=== PATIENT | male | born 1935 | race Caucasian/White ===

== ENCOUNTER 2018-06-11 11:26 | Outpatient (CLI) | payer MEDICARE | END 2018-06-11 11:27 | disposition hospice, inpatient (51) | LOC: EMS 11:26 | PROVIDERS: ATTEND Surgery | DX: R53.1 Weakness (principal); R56.9 Unspecified convulsions | CPT/HCPCS: A0425; A0428 ==

== ENCOUNTER 2018-08-20 08:00 | Outpatient (CLI) | payer MEDICARE | END 2018-08-20 08:01 | disposition home or self-care (01) | LOC: LAB.R 08:00 | PROVIDERS: ATTEND Family Medicine | DX: N39.0 Urinary tract infection, site not specified (principal) | CPT/HCPCS: 87077; 87086; 87181 ==

== ENCOUNTER 2018-09-22 08:00 | Outpatient (CLI) | payer MEDICARE | END 2018-09-22 23:59 | disposition home or self-care (01) | LOC: LAB.R 08:00 | PROVIDERS: ATTEND Family Medicine | DX: N39.0 Urinary tract infection, site not specified (principal) | CPT/HCPCS: 87077; 87086; 87181 ==

== ENCOUNTER 2018-12-07 08:00 | Outpatient (CLI) | payer MEDICARE | END 2018-12-07 23:59 | LOC: LAB.R 08:00 | PROVIDERS: ATTEND Family Medicine | DX: N39.0 Urinary tract infection, site not specified (principal) | CPT/HCPCS: 87086 ==